=== PATIENT | female | born 1965 | race Caucasian/White ===

== ENCOUNTER 2017-10-13 09:51 | Day surgery (SDC) | payer OTHER | END 2017-10-13 14:22 | disposition home or self-care (01) | LOC: GIL 09:51 | DX: K29.50 Unspecified chronic gastritis without bleeding (principal); K63.5 Polyp of colon; K64.9 Unspecified hemorrhoids; I10 Essential (primary) hypertension; E11.9 Type 2 diabetes mellitus without complications; E78.5 Hyperlipidemia, unspecified | CPT/HCPCS: 43239; 88305; 88312 ==